=== PATIENT | female | born 1940 | race Caucasian/White ===

== ENCOUNTER 2018-07-20 16:28 | Emergency (ER) | payer MEDICARE, OTHER ==
[~2018-07-20] VITALS: Ht 165.1 cm; Wt 78.0 kg
[~2018-07-20 16:28] MED LIST: ASPI-1265 PO; GLIP5TAB13 PO; LANTUS SQ; METF500T7 PO
--- NOTE | 2018-07-20 17:22 | NUR ---
assisting RN with pt care, cleaned pt of dried feces, pt was on bedpan, 300ml of urine out, unable to send sample to lab, family at bedside
--- NOTE | 2018-07-20 17:41 | NUR ---
pt to CT
--- NOTE | 2018-07-20 17:46 | NUR ---
Lab at bedside. Pt going to CT
[2018-07-20 18:34] LABS: PARTIAL THROMBOPLASTIN TIME 23 SECONDS (22-32)
[2018-07-20 18:46] LABS: BASOPHILS # (AUTO) 0.1 X10'3 (0-0.2); BASOPHILS % (AUTO) 0.6 % (0-1); EOSINOPHILS % (AUTO) 0 % (0-6); HEMOGLOBIN 12.7 g/dl (12.0-16.0); LYMPHOCYTES # (AUTO) 2.3 X10'3 (1.1-4.8); LYMPHOCYTES % (AUTO) 13.6 % (21-51); MEAN CORPUSCULAR HEMOGLOBIN 27.1 PG (27.0-31.0); MEAN CORPUSCULAR HGB CONC 33.5 g/dL (33.0-36.5); MEAN PLATELET VOLUME 8.5 FL (7.4-10.4); MONOCYTES # (AUTO) 0.9 X10'3 (0-0.9); MONOCYTES % (AUTO) 5.7 % (2-12); NEUTROPHILS # (AUTO) 13.2 X10'3 (1.8-7.7); NEUTROPHILS % (AUTO) 80.1 % (42-75); PLATELET COUNT 237 X10'3 (140-440); RED BLOOD COUNT 4.69 X10'6 (4.20-5.60); RED CELL DISTRIBUTION WIDTH 13.8 % (11.5-14.5); WHITE BLOOD COUNT 16.5 X10'3 (4.5-11.0)
[2018-07-20 18:48] LABS: ALANINE AMINOTRANSFERASE 16 U/L (12-78); ALBUMIN 3.9 G/DL (3.4-5.0); ALBUMIN/GLOBULIN RATIO 0.9 (1.1-1.5); ALKALINE PHOSPHATASE 121 IU/L (46-116); ANION GAP 17 (8-16); ASPARTATE AMINO TRANSFERASE 22 U/L (10-37); BILIRUBIN,TOTAL 1.3 MG/DL (0.1-1.0); BLOOD UREA NITROGEN 30 MG/DL (7-18); BUN/CREATININE RATIO 20.3 (6.6-38.0); CALCIUM 9.4 MG/DL (8.5-10.1); CHLORIDE 99 MMOL/L (99-107); CREATININE 1.48 MG/DL (0.40-0.90); GLUCOSE 382 MG/DL (70-104); POTASSIUM 4.5 MMOL/L (3.5-5.1); SODIUM 136 MMOL/L (135-145); TOTAL PROTEIN 8.1 G/DL (6.4-8.2); eGFR 34 ML/MIN
[2018-07-20 20:04] VITALS: BP 206/85
== END 2018-07-20 20:06 | disposition short-term general hospital (02) ==
LOC: ER 16:29
DX: S06.6X9A Traumatic subarachnoid hemorrhage with loss of consciousness of unspecified duration, initial encounter (principal); R55 Syncope and collapse; E11.65 Type 2 diabetes mellitus with hyperglycemia; I12.9 Hypertensive chronic kidney disease with stage 1 through stage 4 chronic kidney disease, or unspecified chronic kidney disease; N18.9 Chronic kidney disease, unspecified; E11.22 Type 2 diabetes mellitus with diabetic chronic kidney disease; K21.9 Gastro-esophageal reflux disease without esophagitis; Z90.49 Acquired absence of other specified parts of digestive tract; Z90.710 Acquired absence of both cervix and uterus; Z95.2 Presence of prosthetic heart valve; Z88.0 Allergy status to penicillin; Z88.8 Allergy status to other drugs, medicaments and biological substances; Z79.4 Long term (current) use of insulin; Z79.82 Long term (current) use of aspirin; Z79.899 Other long term (current) drug therapy; W19.XXXA Unspecified fall, initial encounter; Y93.89 Activity, other specified; Y92.89 Other specified places as the place of occurrence of the external cause; Y99.8 Other external cause status
CPT/HCPCS: 36415; 70450; 71045; 72125; 80053; 84484; 85025; 85610; 85730; 93005; 99291

== ENCOUNTER 2018-08-12 17:09 | Emergency (ER) | payer MEDICARE, OTHER ==
[~2018-08-12] VITALS: Ht 165.1 cm; Wt 71.4 kg
[2018-08-12 17:43] LABS: BASOPHILS % (AUTO) 0.4 % (0-1); EOSINOPHILS # (AUTO) 0.1 X10'3 (0-0.9); EOSINOPHILS % (AUTO) 0.5 % (0-6); HEMATOCRIT 37.6 % (35.0-45.0); HEMOGLOBIN 12.3 g/dl (12.0-16.0); LYMPHOCYTES # (AUTO) 3.5 X10'3 (1.1-4.8); LYMPHOCYTES % (AUTO) 30.4 % (21-51); MEAN CORPUSCULAR HEMOGLOBIN 27.2 PG (27.0-31.0); MEAN CORPUSCULAR HGB CONC 32.7 g/dL (33.0-36.5); MEAN CORPUSCULAR VOLUME 82.9 FL (78-98); MEAN PLATELET VOLUME 7.5 FL (7.4-10.4); MONOCYTES # (AUTO) 0.7 X10'3 (0-0.9); MONOCYTES % (AUTO) 5.8 % (2-12); NEUTROPHILS # (AUTO) 7.2 X10'3 (1.8-7.7); NEUTROPHILS % (AUTO) 62.9 % (42-75); PLATELET COUNT 288 X10'3 (140-440); RED BLOOD COUNT 4.54 X10'6 (4.20-5.60); RED CELL DISTRIBUTION WIDTH 13.9 % (11.5-14.5); WHITE BLOOD COUNT 11.5 X10'3 (4.5-11.0)
[2018-08-12] MEDS ORDERED: INSU100V9 SQ (17:46)
[2018-08-12] MEDS ORDERED: INSU100C10 SQ ×2 (17:50→17:51)
[2018-08-12] MEDS ORDERED: normal saline 1000ml 1,000 ML IV ONE ×2 (17:55→19:50)
[2018-08-12] MEDS ORDERED: CLON0.2T PO (17:55)
[2018-08-12] MEDS ORDERED: ondansetron/PF 4mg/2ml inj IV ONE (17:55)
[2018-08-12 17:56] LABS: PARTIAL THROMBOPLASTIN TIME 28 SECONDS (22-32)
[2018-08-12] MEDS ORDERED: AMLO2.5T2 PO (17:56)
[2018-08-12] MEDS ORDERED: TRAM50TA2 PO (17:57)
[2018-08-12] MEDS ORDERED: ONDA4TAB6 PO (17:57)
[2018-08-12 17:58] LABS: ALANINE AMINOTRANSFERASE 12 U/L (12-78); ALBUMIN 3.6 G/DL (3.4-5.0); ALKALINE PHOSPHATASE 130 IU/L (46-116); ANION GAP 8 (8-16); ASPARTATE AMINO TRANSFERASE 13 U/L (10-37); BLOOD UREA NITROGEN 19 MG/DL (7-18); BUN/CREATININE RATIO 15.1 (6.6-38.0); CALCIUM 9.6 MG/DL (8.5-10.1); CHLORIDE 100 MMOL/L (99-107); CREATININE 1.26 MG/DL (0.40-0.90); GLUCOSE 206 MG/DL (70-104); POTASSIUM 4.6 MMOL/L (3.5-5.1); SODIUM 134 MMOL/L (135-145); TOTAL CARBON DIOXIDE 25.8 MMOL/L (24-32); TOTAL PROTEIN 7.2 G/DL (6.4-8.2); eGFR 41 ML/MIN
[2018-08-12 19:37] LABS: URINE AMPHETAMINE SCREEN NEGATIVE (Neg); URINE BARBITUATE SCREEN NEGATIVE (Neg); URINE BENZODIAZEPINES SCREEN NEGATIVE (Neg); URINE CANNABINOID SCREEN NEGATIVE (Neg); URINE COCAINE SCREEN NEGATIVE (Neg); URINE METHADONE SCREEN NEGATIVE (Neg); URINE OPIATE SCREEN NEGATIVE (Neg); URINE PHENCYCLIDINE SCREEN NEGATIVE (Neg)
[2018-08-12 19:41] LABS: CLARITY,URINE CLEAR (Clear); COLOR,URINE YELLOW (Yellow); GLUCOSE, URINE 250 mg/dl (Neg); KETONES,URINE TRACE mg/dl (Neg); LEUKOCYTE ESTERASE ,URINE TRACE (Neg); NITRITES, URINE NEGATIVE (Neg); OCCULT BLOOD,URINE NEGATIVE (Neg); PH,URINE 5.5 (4.8-8.0); PROTEIN,URINE NEGATIVE (Neg); UROBILINOGEN,URINE 0.2 E.U/dL (0.2-1.0)
[2018-08-12 19:49] LABS: UA COLLECTION TYPE CLN CATCH MIDSTREAM
[2018-08-12 19:50] LABS: BACTERIA,URINE FEW /HPF (Neg); MUCUS STRANDS FEW /LPF (Neg); RBC,URINE 0-2 /HPF (0-2); SQUAMOUS EPITHELIAL CELL,UR FEW /LPF (FEW)
[2018-08-12 22:11] VITALS: BP 143/74
== END 2018-08-12 22:12 | disposition home or self-care (01) ==
LOC: ER 17:10
DX: E86.0 Dehydration (principal); I10 Essential (primary) hypertension; K21.9 Gastro-esophageal reflux disease without esophagitis; E11.9 Type 2 diabetes mellitus without complications; Z90.49 Acquired absence of other specified parts of digestive tract; Z90.710 Acquired absence of both cervix and uterus; Z79.4 Long term (current) use of insulin; Z88.0 Allergy status to penicillin; Z88.8 Allergy status to other drugs, medicaments and biological substances; Z91.048 Other nonmedicinal substance allergy status
CPT/HCPCS: 36415; 70450; 71045; 80053; 80305; 81001; 84484; 85025; 85610; 85730; 87077; 87088; 87186; 93005; 96361; 96374; 99284; J2405; J7030

== ENCOUNTER 2021-06-02 10:30 | Inpatient (IN) | payer MEDICARE, OTHER ==
[~2021-06-02] VITALS: Ht 165.1 cm; Wt 146.0 kg
[~2021-06-02 10:30] MED LIST changes: -ASPI-1265 PO; +ASPI-611 PO; +CARV-49 PO; +FURO40TA4 PO; -GLIP5TAB13 PO; -LANTUS SQ; +LOSA25TA41 PO; -METF500T7 PO; +ONDA8TAB13 PO; +PANT-47 PO; +TRAM50TA2 PO
--- NOTE | 2021-06-02 11:10 | NUR ---
EMS placed pt in room 16.
[2021-06-02 12:00] LABS: BASOPHILS # (AUTO) 0.1 X10'3 (0-0.2); BASOPHILS % (AUTO) 0.4 % (0-1); EOSINOPHILS # (AUTO) 0.1 X10'3 (0-0.9); EOSINOPHILS % (AUTO) 0.8 % (0-6); HEMATOCRIT 33.4 % (35.0-45.0); HEMOGLOBIN 10.7 g/dl (12.0-16.0); LYMPHOCYTES # (AUTO) 5.9 X10'3 (1.1-4.8); LYMPHOCYTES % (AUTO) 47.8 % (21-51); MEAN CORPUSCULAR HEMOGLOBIN 26.8 PG (27.0-31.0); MEAN CORPUSCULAR VOLUME 83.8 FL (78-98); MEAN PLATELET VOLUME 7.6 FL (7.4-10.4); MONOCYTES # (AUTO) 0.8 X10'3 (0-0.9); MONOCYTES % (AUTO) 6.2 % (2-12); NEUTROPHILS # (AUTO) 5.5 X10'3 (1.8-7.7); NEUTROPHILS % (AUTO) 44.8 % (42-75); PLATELET COUNT 272 X10'3 (140-440); RED BLOOD COUNT 3.99 X10'6 (4.20-5.60); RED CELL DISTRIBUTION WIDTH 15.2 % (11.5-14.5); WHITE BLOOD COUNT 12.3 X10'3 (4.5-11.0)
[2021-06-02 12:17] LABS: ALANINE AMINOTRANSFERASE 14 U/L (12-78); ALBUMIN 3.7 G/DL (3.4-5.0); ALBUMIN/GLOBULIN RATIO 0.9 (1.1-1.5); ALKALINE PHOSPHATASE 77 IU/L (46-116); ANION GAP 9 (8-16); ASPARTATE AMINO TRANSFERASE 24 U/L (10-37); BILIRUBIN,TOTAL 0.8 MG/DL (0.1-1.0); BLOOD UREA NITROGEN 11 MG/DL (7-18); BUN/CREATININE RATIO 11.5 (6.6-38.0); CHLORIDE 101 MMOL/L (99-107); CREATININE 0.96 MG/DL (0.40-0.90); GLUCOSE 109 MG/DL (70-104); SODIUM 135 MMOL/L (135-145); TOTAL CARBON DIOXIDE 24.7 MMOL/L (24-32); TOTAL PROTEIN 7.6 G/DL (6.4-8.2); eGFR 56 ML/MIN
[2021-06-02 13:49] LABS: CLARITY,URINE CLOUDY (Clear); COLOR,URINE YELLOW (Yellow); GLUCOSE, URINE NEGATIVE (Neg); KETONES,URINE NEGATIVE (Neg); LEUKOCYTE ESTERASE ,URINE MODERATE (Neg); NITRITES, URINE NEGATIVE (Neg); OCCULT BLOOD,URINE TRACE-INTACT (Neg); PROTEIN,URINE NEGATIVE (Neg); UA COLLECTION TYPE STRAIGHT CATH; UROBILINOGEN,URINE 0.2 E.U/dL (0.2-1.0)
[2021-06-02 14:00] LABS: BACTERIA,URINE 2+ /HPF (Neg); SQUAMOUS EPITHELIAL CELL,UR FEW /LPF (FEW); WBC CLUMPS,URINE MANY /HPF (NEGATIVE)
[2021-06-02 14:01] LABS: RBC,URINE 0-2 /HPF (0-2); TRANSITIONAL EPI CELLS,URINE MODERATE /HPF; WBC,URINE TNTC /HPF (0-4)
[2021-06-02] MEDS ORDERED: iohexol 350MG/ML 100ml bottle IV ONE (15:18)
[2021-06-02] MEDS ORDERED: INSU100V9 SQ (16:19)
[2021-06-02] MEDS ORDERED: ZIPR20CA2 PO (16:19)
[2021-06-02] MEDS ORDERED: MYCOL15CR TP (16:19)
[2021-06-02] MEDS ORDERED: INSU100C10 SQ (16:19)
[2021-06-02] MEDS ORDERED: NYSPWD TP (16:19)
[2021-06-02] MEDS ORDERED: potassium CL 10mEq/100ml bag 100 ML IV PRN (16:25)
[2021-06-02] MEDS ORDERED: magnesium 2GM in 50ml NS 50 ML IV PRN (16:25)
[2021-06-02] MEDS ORDERED: ondansetron/PF 4mg/2ml inj IV PRN (16:25)
[2021-06-02] MEDS: atorvastatin 10mg tablet PO SCH (16:25)
[2021-06-02] MEDS ORDERED: HYDROcodone/acetaminophen 5mg/325mg tablet PO PRN (16:25)
[2021-06-02] MEDS ORDERED: mag hydrox/Alum hydrox/simeth 30ml oral suspension PO PRN (16:25)
[2021-06-02] MEDS ORDERED: acetaminophen 650mg rectal suppository RC PRN (16:25)
[2021-06-02] MEDS ORDERED: ondansetron 4mg rapidly disintigrating tab PO PRN (16:25)
[2021-06-02] MEDS ORDERED: dextrose 50%-water 50ml dispensing syringe IV PRN (16:25)
[2021-06-02] MEDS ORDERED: bisacodyl 10mg suppository rectal RC PRN (16:25)
[2021-06-02] MEDS ORDERED: HYDROcodone/acetaminophen 10/325mg tab PO PRN (16:25)
[2021-06-02] MEDS ORDERED: diphenhydrAMINE 25mg capsule PO PRN (16:25)
[2021-06-02] MEDS ORDERED: morphine 2 MG/ML inj. syringe IV PRN ×2 (16:25)
[2021-06-02] MEDS ORDERED: insulin Lispro (HumaLOG) vial - multi-dose SQ SCH (16:25)
[2021-06-02] MEDS ORDERED: magnesium 4gm in 100ml NS 100 ML IV PRN (16:25)
[2021-06-02] MEDS ORDERED: PERFLUTREN PROTEIN-A MICROSPHR (Optison) 0.22 MG/ML 3ML VIAL IV ONE (16:25)
[2021-06-02] MEDS ORDERED: magnesium Cl slow-release 64mg tablet PO PRN (16:25)
[2021-06-02] MEDS ORDERED: glucagon, human recombinant 1mg kit SUBCUT PRN (16:25)
[2021-06-02] MEDS ORDERED: DEXTROSE 15 GM of carb/4 tabs (each vial/BOTTLE has 4 tablets) PO PRN ×2 (16:25)
[2021-06-02] MEDS ORDERED: magnesium hydroxide 30ml (MOM) UD suspension PO PRN (16:25)
[2021-06-02] MEDS ORDERED: potassium Cl 20 mEq SR tablet PO PRN ×2 (16:25)
[2021-06-02] MEDS ORDERED: aspirin 81mg, enteric-coated 1 TAB TABLET.DR PO SCH (16:25)
[2021-06-02] MEDS ORDERED: MESSAGE TO PHARMACY PO ONE (16:25)
[2021-06-02] MEDS ORDERED: aspirin 325mg tablet PO ONE (16:35)
[2021-06-02] MEDS: traMADol 50MG tablet PO PRN (16:45)
[2021-06-02] MEDS: normal saline 1000ml 1,000 ML IV SCH (16:56)
[2021-06-02] MEDS: docusate sod 100mg capsule PO SCH (19:57)
[2021-06-02] MEDS: carvedilol 6.25mg tablet PO SCH (20:02)
[2021-06-02] MEDS: CefTRIAXone/D5W-Rocephin 1gm 50 ML IV SCH (20:02)
[2021-06-02] MEDS: heparin, porcine 5000 units/ml vial SQ SCH (20:03)
[2021-06-02] MEDS: insulin glargine (Lantus) pen - multi-dose SQ SCH (21:00)
[2021-06-02] MEDS: K and/or MAG REPLACEMENT MC SCH (21:00)
[2021-06-02 21:30] VITALS: BP 153/44
[2021-06-02] MEDS: nystatin 15 GM powder TP SCH (22:51)
[2021-06-02] MEDS: nystatin/triamcinolone cream 15gm TP SCH (22:51)
[2021-06-02] MEDS: ziprasidone 20mg capsule PO SCH (23:18)
[2021-06-03 01:30] VITALS: BP 119/30
[2021-06-03 05:30] VITALS: BP 117/39
[2021-06-03] MEDS: normal saline 1000ml 1,000 ML IV SCH ×2 (05:45→11:21)
--- NOTE | 2021-06-03 06:45 | NUR ---
Patient in room ORTHO 4015. I have received report from KENYA Wilkerson and had the opportunity to ask questions and assume patient care.
[2021-06-03] MEDS: dextrose 50%-water 50ml dispensing syringe IV PRN (07:27)
[2021-06-03 07:30] LABS: HEMATOCRIT 28.1 % (35.0-45.0); HEMOGLOBIN 9.2 g/dl (12.0-16.0); MEAN CORPUSCULAR HGB CONC 32.6 g/dL (33.0-36.5); MONOCYTES # (AUTO) 1.2 X10'3 (0-0.9); NEUTROPHILS # (AUTO) 3.7 X10'3 (1.8-7.7)
[2021-06-03 07:35] LABS: BASOPHILS # (AUTO) 0.1 X10'3 (0-0.2); BASOPHILS % (AUTO) 0.4 % (0-1); D-DIMER 0.33 MG/L FEU (0-0.50); EOSINOPHILS # (AUTO) 0.2 X10'3 (0-0.9); EOSINOPHILS % (AUTO) 1.7 % (0-6); LYMPHOCYTES # (AUTO) 9.1 X10'3 (1.1-4.8); LYMPHOCYTES % (AUTO) 63.4 % (21-51); MEAN CORPUSCULAR HEMOGLOBIN 27.2 PG (27.0-31.0); MEAN CORPUSCULAR VOLUME 83.6 FL (78-98); MEAN PLATELET VOLUME 7.7 FL (7.4-10.4); MONOCYTES % (AUTO) 8.4 % (2-12); NEUTROPHILS % (AUTO) 26.1 % (42-75); PLATELET COUNT 224 X10'3 (140-440); RED BLOOD COUNT 3.36 X10'6 (4.20-5.60); RED CELL DISTRIBUTION WIDTH 15.2 % (11.5-14.5); WHITE BLOOD COUNT 14.3 X10'3 (4.5-11.0)
[2021-06-03 07:41] LABS: ALANINE AMINOTRANSFERASE 10 U/L (12-78); ALBUMIN 2.9 G/DL (3.4-5.0); ALKALINE PHOSPHATASE 62 IU/L (46-116); ANION GAP 9 (8-16); ASPARTATE AMINO TRANSFERASE 15 U/L (10-37); BILIRUBIN,TOTAL 0.6 MG/DL (0.1-1.0); BLOOD UREA NITROGEN 12 MG/DL (7-18); BUN/CREATININE RATIO 9.8 (6.6-38.0); C-REACTIVE PROTEIN 0.22 MG/DL (0.0-0.5); CALCIUM 8.1 MG/DL (8.5-10.1); CHLORIDE 105 MMOL/L (99-107); CHOL/HDL RATIO 2.5 (0.00-4.99); CHOLESTEROL 145 MG/DL (0-200); CREATININE 1.22 MG/DL (0.40-0.90); HDL CHOLESTEROL 59 MG/DL (35-60); LACTATE DEHYDROGENASE 173 U/L (81-234); LDL CHOLESTEROL 61 MG/DL (50-100); PHOSPHORUS 3.6 MG/DL (2.3-4.5); POTASSIUM 3.9 MMOL/L (3.5-5.1); SODIUM 139 MMOL/L (135-145); TOTAL CARBON DIOXIDE 24.8 MMOL/L (24-32); TOTAL PROTEIN 5.7 G/DL (6.4-8.2); TRIGLYCERIDES 99 MG/DL (20-135); eGFR 43 ML/MIN
[2021-06-03 07:50] LABS: GLUCOSE 44 MG/DL (70-104)
[2021-06-03] MEDS: carvedilol 6.25mg tablet PO SCH ×2 (08:00→19:36)
[2021-06-03] MEDS: nystatin/triamcinolone cream 15gm TP SCH ×2 (08:00→20:00)
[2021-06-03] MEDS: K and/or MAG REPLACEMENT MC SCH ×2 (08:00→20:00)
[2021-06-03] MEDS: aspirin 81mg, enteric-coated 1 TAB TABLET.DR PO SCH (08:00)
[2021-06-03] MEDS: atorvastatin 10mg tablet PO SCH (08:00)
[2021-06-03] MEDS: nystatin 15 GM powder TP SCH ×2 (08:54→21:51)
[2021-06-03] MEDS: heparin, porcine 5000 units/ml vial SQ SCH ×2 (08:55→19:36)
[2021-06-03] MEDS: docusate sod 100mg capsule PO SCH ×2 (08:56→19:36)
[2021-06-03] MEDS: pantoprazole 40mg Tablet.DR PO SCH (08:56)
[2021-06-03] MEDS: CefTRIAXone/D5W-Rocephin 1gm 50 ML IV SCH (08:56)
[2021-06-03 10:27] LABS: TOTAL CELLS COUNTED 100
[2021-06-03 10:28] LABS: PLATELET ESTIMATE NORMAL; SMUDGE CELLS 2+
[2021-06-03] MEDS: acetaminophen 325mg tablet PO PRN (11:23)
--- NOTE | 2021-06-03 11:59 | NUR ---
Message: Nimco [id number]...RE: [id number] Kathleen Lopez...she would like dry eye eyedrops as she uses them at home. Thank you!
[2021-06-03] MEDS ORDERED: LORazepam 2 mg/ml vial IV ONE ×2 (12:20→17:40)
--- NOTE | 2021-06-03 15:19 | NUR ---
DM Consult: Pt admit DX high risk TIA, hypertensive urgency/encephalopathy and COVID-19 per EMR. Pt hx T2DM A1C 7.5% taking insulin at home per clinical pharmacist. Pt placed on carb controlled/pureed/thin diet per [employer] [employer]/ recs w/ Glu 45mg/dl and 50mg/dl since yesterday afternoon without receiving glycemic protocol. DM ed deferred at this time given frequent low Glu and A1C appropriate given age per ADA guidelines. Addendum: 06/03/21 at [address] Amended: Links added.
--- NOTE | 2021-06-03 17:38 | NUR ---
I Spoke with Dr. Melendrez and patient to receive 2mg ativan before MRI and 5mg haldol 15 min to 30 min before MRI
[2021-06-03] MEDS ORDERED: haloperidol lactate 5mg/ml inj IM ONE (17:40)
[2021-06-03 19:13] VITALS: BP 199/53
[2021-06-03] MEDS: ziprasidone 20mg capsule PO SCH (19:35)
[2021-06-03] MEDS: traMADol 50MG tablet PO PRN (21:51)
[2021-06-03] MEDS: insulin glargine (Lantus) pen - multi-dose SQ SCH (22:16)
[2021-06-03 22:38] VITALS: BP 167/43
[2021-06-04] VITALS (8 sets, daily range): BP systolic 136–220; BP diastolic 45–86
--- NOTE | 2021-06-04 03:19 | NUR ---
ATTEMPTED TO RE TAKE BP. AUTOMATIC CUFF READINGS WERE 178/57, 111/41 AND 155/55 AFTER MULTIPLE ATTEMPTS OF READJUSTING CUFF. MANUAL BP WAS DONE AND IT READ 136/52. OF NOTE HER DAUGHTER TOLD ME WHEN WE SPOKE ON THE PHONE THAT ONE OF THE REASONS SHE BROUGHT THE PATIENT IN WAS "HER BLOOD PRESSURE KEPT GOING UP AND DOWN".
--- NOTE | 2021-06-04 06:28 | NUR ---
Patient in room ORTHO 4020. I have received report from KENYA BONILLA and had the opportunity to ask questions and assume patient care.
[2021-06-04] MEDS: CefTRIAXone/D5W-Rocephin 1gm 50 ML IV SCH (07:00)
--- NOTE | 2021-06-04 07:10 | NUR ---
CALL LAB REGARDING UA ON 06/02, PRASHANTH STATED "THEY DROPPED THE BALL" SO STRAIGHT CATH ORDER PUT IN, LAB THEN CALLED BACK THEY FOUND THE URINE FROM 06/02 AND WILL PROCEDE TO RUN IN IT. STRAIGHT CATH ORDER CANCELLED.
[2021-06-04 07:26] LABS: BASOPHILS # (AUTO) 0.1 X10'3 (0-0.2); BASOPHILS % (AUTO) 0.6 % (0-1); EOSINOPHILS # (AUTO) 0.3 X10'3 (0-0.9); HEMATOCRIT 31.6 % (35.0-45.0); HEMOGLOBIN 10.4 g/dl (12.0-16.0); LYMPHOCYTES # (AUTO) 4.6 X10'3 (1.1-4.8); MEAN CORPUSCULAR HEMOGLOBIN 27.3 PG (27.0-31.0); MEAN CORPUSCULAR HGB CONC 32.9 g/dL (33.0-36.5); MEAN CORPUSCULAR VOLUME 83.2 FL (78-98); MEAN PLATELET VOLUME 7.6 FL (7.4-10.4); MONOCYTES % (AUTO) 10.1 % (2-12); NEUTROPHILS # (AUTO) 4.1 X10'3 (1.8-7.7); NEUTROPHILS % (AUTO) 40.3 % (42-75); PLATELET COUNT 231 X10'3 (140-440); RED CELL DISTRIBUTION WIDTH 14.7 % (11.5-14.5); WHITE BLOOD COUNT 10.1 X10'3 (4.5-11.0)
[2021-06-04] MEDS ORDERED: LORazepam 2 mg/ml vial IV ONE (08:00)
[2021-06-04] MEDS: K and/or MAG REPLACEMENT MC SCH ×2 (08:00→20:00)
[2021-06-04] MEDS: carvedilol 6.25mg tablet PO SCH ×3 (08:00→20:52)
[2021-06-04] MEDS: pantoprazole 40mg Tablet.DR PO SCH (08:00)
[2021-06-04] MEDS: aspirin 81mg, enteric-coated 1 TAB TABLET.DR PO SCH (08:00)
[2021-06-04] MEDS: nystatin 15 GM powder TP SCH ×2 (08:00→20:52)
[2021-06-04] MEDS: atorvastatin 10mg tablet PO SCH (08:00)
[2021-06-04] MEDS: docusate sod 100mg capsule PO SCH ×2 (08:00→20:51)
[2021-06-04] MEDS ORDERED: haloperidol lactate 5mg/ml inj IM ONE (08:00)
[2021-06-04] MEDS: nystatin/triamcinolone cream 15gm TP SCH ×2 (08:00→20:00)
[2021-06-04 08:05] LABS: ALANINE AMINOTRANSFERASE 11 U/L (12-78); ALBUMIN 3.1 G/DL (3.4-5.0); ALBUMIN/GLOBULIN RATIO 0.9 (1.1-1.5); ALKALINE PHOSPHATASE 76 IU/L (46-116); ANION GAP 10 (8-16); ASPARTATE AMINO TRANSFERASE 15 U/L (10-37); BILIRUBIN,TOTAL 0.7 MG/DL (0.1-1.0); BLOOD UREA NITROGEN 14 MG/DL (7-18); BUN/CREATININE RATIO 13.1 (6.6-38.0); C-REACTIVE PROTEIN 1.75 MG/DL (0.0-0.5); CALCIUM 8.5 MG/DL (8.5-10.1); CHLORIDE 105 MMOL/L (99-107); CREATININE 1.07 MG/DL (0.40-0.90); GLUCOSE 137 MG/DL (70-104); LACTATE DEHYDROGENASE 195 U/L (81-234); MAGNESIUM 2.1 MG/DL (1.5-2.4); PHOSPHORUS 3.6 MG/DL (2.3-4.5); POTASSIUM 4.6 MMOL/L (3.5-5.1); SODIUM 140 MMOL/L (135-145); TOTAL CARBON DIOXIDE 25.5 MMOL/L (24-32); TOTAL PROTEIN 6.4 G/DL (6.4-8.2); eGFR 49 ML/MIN
[2021-06-04 08:29] LABS: D-DIMER 0.44 MG/L FEU (0-0.50)
[2021-06-04] MEDS: normal saline 1000ml 1,000 ML IV SCH ×2 (08:58→21:45)
--- NOTE | 2021-06-04 09:44 | NUR ---
Message: [id number], John MRI is to come, ativan given. Patient is asleep at this time. Heart rate is in the high 40s low 50s, and her QT interval is 0.5. If she needs the haldol do you want me to give this with a prolonged QT? [id number] [phone]
[2021-06-04] MEDS: heparin, porcine 5000 units/ml vial SQ SCH ×2 (11:54→20:51)
[2021-06-04] MEDS ORDERED: clopidogrel 300mg tablet PO ONE (12:30)
--- NOTE | 2021-06-04 12:59 | NUR ---
Patient is sedated after MRI, not appropriate to eat or stand to do orthostatic vital signs. Patients blood sugar not covered for breakfast or lunch as blood glucose was normal and she did not eat due to sedation
--- NOTE | 2021-06-04 14:44 | NUR ---
Message: [id number], John blood pressure is 220/84 manually. Do you want me to treat or keep an eye on it considering mri was positive for ischemic stroke. thanks [id number] [phone]
[2021-06-04] MEDS ORDERED: clopidogrel 75mg tablet PO ONE (16:08)
--- NOTE | 2021-06-04 16:12 | NUR ---
Message: [id number] Kathleen Lopez Patient BP was 220/84 after the am dose of Coreg was given the BP is 168/80 both done manually. Please advise what to do with the BP problem. Ivonne [phone]
[2021-06-04] MEDS ORDERED: hydrALAZINE 20mg/ml inj. IV PRN (16:45)
--- NOTE | 2021-06-04 17:00 | NUR ---
Message: Nimco [id number]...RE: [id number] Kathleen Lopez...Her daughter Radha would like to talk to you about her mom's MRI results. Please call her at [phone]. Thank you
[2021-06-04] MEDS ORDERED: pravastatin 40mg tablet PO SCH (18:00)
--- NOTE | 2021-06-04 18:29 | NUR ---
Problems reprioritized. Patient report given, questions answered & plan of care reviewed with KENYA Louis.
[2021-06-04] MEDS ORDERED: aspirin 81mg, enteric-coated 1 TAB TABLET.DR PO SCH (20:00)
[2021-06-04] MEDS: insulin glargine (Lantus) pen - multi-dose SQ SCH (20:50)
[2021-06-04] MEDS: traMADol 50MG tablet PO PRN (20:51)
[2021-06-04] MEDS: ziprasidone 20mg capsule PO SCH (20:51)
[2021-06-04] MEDS: mineral oil/petrolatum, white cream 113gm jar TP SCH (20:52)
[2021-06-05 02:00] VITALS: BP 164/76
[2021-06-05] MEDS: normal saline 1000ml 1,000 ML IV SCH (05:36)
--- NOTE | 2021-06-05 06:17 | NUR ---
Received report from KENYA Louis
--- NOTE | 2021-06-05 06:40 | NUR ---
Received report from GIACOMO brewer RN.
[2021-06-05] MEDS: dextrose 50%-water 50ml dispensing syringe IV PRN (06:59)
[2021-06-05 07:08] LABS: BASOPHILS # (AUTO) 0.1 X10'3 (0-0.2); BASOPHILS % (AUTO) 0.4 % (0-1); EOSINOPHILS # (AUTO) 0.3 X10'3 (0-0.9); EOSINOPHILS % (AUTO) 2.5 % (0-6); HEMOGLOBIN 10.7 g/dl (12.0-16.0); LYMPHOCYTES # (AUTO) 6.1 X10'3 (1.1-4.8); LYMPHOCYTES % (AUTO) 46.4 % (21-51); MEAN CORPUSCULAR HEMOGLOBIN 27.2 PG (27.0-31.0); MEAN CORPUSCULAR HGB CONC 32.5 g/dL (33.0-36.5); MEAN CORPUSCULAR VOLUME 83.8 FL (78-98); MEAN PLATELET VOLUME 7.3 FL (7.4-10.4); MONOCYTES # (AUTO) 1.3 X10'3 (0-0.9); NEUTROPHILS # (AUTO) 5.4 X10'3 (1.8-7.7); NEUTROPHILS % (AUTO) 40.7 % (42-75); PLATELET COUNT 280 X10'3 (140-440); RED BLOOD COUNT 3.94 X10'6 (4.20-5.60); RED CELL DISTRIBUTION WIDTH 15.1 % (11.5-14.5); WHITE BLOOD COUNT 13.2 X10'3 (4.5-11.0)
[2021-06-05 07:17] LABS: D-DIMER 0.37 MG/L FEU (0-0.50)
[2021-06-05 07:33] LABS: ALANINE AMINOTRANSFERASE 11 U/L (12-78); ALBUMIN 3.1 G/DL (3.4-5.0); ALBUMIN/GLOBULIN RATIO 0.8 (1.1-1.5); ALKALINE PHOSPHATASE 75 IU/L (46-116); ANION GAP 12 (8-16); ASPARTATE AMINO TRANSFERASE 14 U/L (10-37); BILIRUBIN,TOTAL 0.8 MG/DL (0.1-1.0); BLOOD UREA NITROGEN 11 MG/DL (7-18); BUN/CREATININE RATIO 12.8 (6.6-38.0); C-REACTIVE PROTEIN 2.65 MG/DL (0.0-0.5); CALCIUM 8.4 MG/DL (8.5-10.1); CHLORIDE 103 MMOL/L (99-107); CREATININE 0.86 MG/DL (0.40-0.90); GLUCOSE 76 MG/DL (70-104); LACTATE DEHYDROGENASE 215 U/L (81-234); MAGNESIUM 1.8 MG/DL (1.5-2.4); PHOSPHORUS 3.2 MG/DL (2.3-4.5); POTASSIUM 3.7 MMOL/L (3.5-5.1); SODIUM 138 MMOL/L (135-145); TOTAL CARBON DIOXIDE 23.5 MMOL/L (24-32); eGFR 64 ML/MIN
--- NOTE | 2021-06-05 07:37 | NUR ---
Critical blood glucose at 65, patient asleep 25mg of dectro Addendum: 06/05/21 at 0737 by Vivienne Masters RN dextrose given, recheck was 126
[2021-06-05] MEDS: K and/or MAG REPLACEMENT MC SCH (08:00)
[2021-06-05] MEDS ORDERED: clopidogrel 75mg tablet PO SCH (08:00)
[2021-06-05] MEDS: nystatin/triamcinolone cream 15gm TP SCH (08:00)
[2021-06-05] MEDS: carvedilol 6.25mg tablet PO SCH (08:18)
[2021-06-05] MEDS: docusate sod 100mg capsule PO SCH (08:18)
[2021-06-05] MEDS: pantoprazole 40mg Tablet.DR PO SCH (08:19)
[2021-06-05] MEDS: nystatin 15 GM powder TP SCH (08:20)
[2021-06-05] MEDS: mineral oil/petrolatum, white cream 113gm jar TP SCH (08:20)
[2021-06-05] MEDS: CefTRIAXone/D5W-Rocephin 1gm 50 ML IV SCH (08:21)
[2021-06-05] MEDS: heparin, porcine 5000 units/ml vial SQ SCH (08:22)
[2021-06-05 09:52] VITALS: BP 152/74
[2021-06-05] MEDS: acetaminophen 325mg tablet PO PRN (12:09)
[2021-06-05 12:20] VITALS: BP 186/76
--- NOTE | 2021-06-05 12:31 | NUR ---
Per MD request physical therapy to work with her DENIZ for discharge, page sent.
--- NOTE | 2021-06-05 12:34 | NUR ---
Patients oral intake has been low for breakfast and lunch, blood sugar this morning critically low and lunch was normal therefor no insulin coverage has been administered.
[2021-06-05] MEDS ORDERED: PRAV20TA4 PO (12:56)
[2021-06-05] MEDS ORDERED: APIX5TAB3 PO (12:56)
[2021-06-05] MEDS ORDERED: CEFD300C3 PO (14:00)
--- NOTE | 2021-06-05 14:04 | NUR ---
Called and discussed discharge instructions with patients daughter Radha. She is in agreeance with all instructions given and will be provided with a coupon for elequis in the discharge folder. She stated her gets home health presently through [facility] and asked if her mother could get home health through them as well, this RN notified discharge planning and they are going to try to arrange this. Patient did well with physical therapy and ambulated about 50 feet. 20 gauge piv removed from left forearm with cannula intact no s/s of phlebitis. Patient is happy to go home daughter to pick her up at 1500
--- NOTE | 2021-06-05 15:07 | NUR ---
Patient discharged home via wheelchair to a private vehicle daughter Radha met us at the door.
== END 2021-06-05 15:00 | disposition home health service (06) | DRG 64 ==
LOC: ER 10:31 → ED HOLD 16:28 → ORTHO 4S 21:00
PROVIDERS: ADMIT Family Medicine; ATTEND Family Medicine
PROC: B3251ZZ Computerized Tomography (CT Scan) of Bilateral Common Carotid Arteries using Low Osmolar Contrast (ICD-10-PCS; principal; 2021-06-02)
PROC: B32G1ZZ Computerized Tomography (CT Scan) of Bilateral Vertebral Arteries using Low Osmolar Contrast (ICD-10-PCS; 2021-06-02)
PROC: B32R1ZZ Computerized Tomography (CT Scan) of Intracranial Arteries using Low Osmolar Contrast (ICD-10-PCS; 2021-06-02)
PROC: B3281ZZ Computerized Tomography (CT Scan) of Bilateral Internal Carotid Arteries using Low Osmolar Contrast (ICD-10-PCS; 2021-06-02)
DX: I63.29 Cerebral infarction due to unspecified occlusion or stenosis of other precerebral arteries (principal); G93.41 Metabolic encephalopathy; U07.1 COVID-19; N39.0 Urinary tract infection, site not specified; E11.9 Type 2 diabetes mellitus without complications; E78.5 Hyperlipidemia, unspecified; G20 Parkinson's disease; G25.0 Essential tremor; R29.701 NIHSS score 1; G89.4 Chronic pain syndrome; I11.0 Hypertensive heart disease with heart failure; I48.0 Paroxysmal atrial fibrillation; I50.9 Heart failure, unspecified; S80.819A Abrasion, unspecified lower leg, initial encounter; X58.XXXA Exposure to other specified factors, initial encounter; K21.9 Gastro-esophageal reflux disease without esophagitis; L30.4 Erythema intertrigo; I25.2 Old myocardial infarction; Z78.9 Other specified health status; Z79.82 Long term (current) use of aspirin; Z79.899 Other long term (current) drug therapy; Z83.3 Family history of diabetes mellitus; Z88.8 Allergy status to other drugs, medicaments and biological substances; Z90.710 Acquired absence of both cervix and uterus; Z95.2 Presence of prosthetic heart valve; Z88.0 Allergy status to penicillin; Z91.041 Radiographic dye allergy status; Z91.048 Other nonmedicinal substance allergy status; Z90.49 Acquired absence of other specified parts of digestive tract; Y93.89 Activity, other specified; Y92.89 Other specified places as the place of occurrence of the external cause; Y99.8 Other external cause status
CPT/HCPCS: 36415; 70450; 70496; 70498; 70551; 71045; 80053; 80061; 81001; 82948; 83036; 83615; 83735; 83880; 84100; 84145; 84484; 85007; 85025; 85379; 85651; 86140; 87077; 87081; 87088; 87186; 87635; 92508; 92616; 93005; 93306; 97161; 97530; 99285; C9803; G0378; J0696; J1644; J1815; J2060; J3490; J7030; Q9967